=== PATIENT | male | born 1950 | race Caucasian/White ===

== ENCOUNTER 2016-12-17 17:23 | Inpatient (IN) | payer OTHER ==
[~2016-12-17] VITALS: Ht 182.9 cm; Wt 137.7 kg
--- NOTE | ~2016-12-17 | HC ---
[facility] [place] [address] CONSULTATION Name: ZACKNANA Room #: 417-I ADM IN .R.#: [id number] Admission: 12/17/16 Attend Phys: Hyun Rosa MD Discharge: Date of : 48 Report #: [id number] THIS REPORT FOR: //name// CC: FAM unknown Hyun Rosa DATE OF SERVICE: 12/19/2016 HISTORY OF PRESENT ILLNESS: The patient is a 66-year-old white male who was admitted with intermittent episodes of diarrhea, was noted to have a weight loss of 30 pounds, elevated creatinine. He had acute renal failure, hypokalemia secondary to diarrhea. He is having problems with worsening weakness to the point where he has become nonambulatory. He has been treated for his acute renal failure with hydration. He was noted to have hypokalemia. He had diarrhea. He is morbidly obese. We are seeing him in rehabilitation medicine consultation. PAST MEDICAL HISTORY: Includes morbid obesity. He has had bilateral lower extremity cellulitis in the past. He does have hyperglycemia with "prediabetes", history of hypertension. MEDICATIONS: Please see the full medication listing. SOCIAL HISTORY: Lives in a house alone. Premorbid gait was with a cane, always using a walker and had gotten to the point where he was unable to ambulate at all. He has two sisters that live locally. They had check in on him. He does have 5-6 steps into his apartment. He has had a house cleaning service when he can afford it. REVIEW OF SYSTEMS: No current complaints of chest pain, shortness of breath or abdominal discomfort. He does have pain involving his right thumb. He complains of overall generalized weakness. PHYSICAL EXAMINATION: GENERAL: He is a 66-year-old obese white male lying in bed in no obvious distress. VITAL SIGNS: Last recorded temperature is 98.4, pulse 108, respirations 17, blood pressure 151/91. EXTREMITIES: He does have significant erythema and swelling of the right thumb especially at the metacarpophalangeal base and to some extent across the thenar eminence. He has pain when attempting to shake hands. Functional range of motion of the left upper extremity with strength probably a grade 4- to 3+. Right upper extremity proximal strength was 4- to 3+. In his lower extremities, he has significant weakness at a grade 2+ to 3- proximally and more of a grade 3 to 3+ distally. Appears to have reasonably intact sensation to light touch. No focal calf swelling. He is quite weak with functional mobility, [place] [address] CONSULTATION Name: ANNA DIXON Room #: 417-I [facility] IN [facility].#: [id number] Admission: 12/17/16 Attend Phys: Hyun Rosa MD Discharge: Date of : 48 Report #: [id number] mod assist. He is dependent for sit to stand. ASSESSMENT: A 66-year-old white male with the following problem list: 1. Significant debilitation and weakness especially proximal lower extremities. He needs significant assistance with functional mobility and ADLs. 2. Right thumb metacarpophalangeal erythema and swelling. Rule out gout. Sed rate was 50. We will check a uric acid. 3. Recent acute renal failure. 4. History of recent weight loss. 5. Electrolyte abnormalities with hypokalemia. 6. History of intermittent episodes of diarrhea. 7. Morbid obesity. PLAN: See above. Orders placed for uric acid. He is very weak and would anticipate that he will need for prolonged therapies to try to gradually improve his strength and endurance. Insurance will need to be checked regarding rehab therapy options. By: [id number] Fredy Lewis MD /nt
--- NOTE | ~2016-12-17 | EKG ---
[place] [address] [facility] [place] [address] ELECTROCARDIOGRAM REPORT Name: ANNA DIXON Room #: 417-I ADM IN M.R.#: [id number] Admission: 12/17/16 Attend Phys: Hyun Rosa MD Discharge: Date of : 48 Report #: [id number] THIS REPORT FOR: //name// [facility] ED Test Date: 2016-12-17 Test Time: 17:59:48 Pat Name: ANNA DIXON Department: Room: [facility] Gender: M Progressive [employer] Maker: KAIDEN : 1950 Requested By: Ozzie Luong Order Number: [id number] MD: Rodney Reyes Measurements Intervals [place] Rate: 121 P: 0 IL: 87 QRS: 52 QRSD: 180 T: -65 QT: 352 QTc: 500 Interpretive Statements Atrial fibrillation with a rapid ventricular response Right bundle branch block ST depression, consider ischemia, diffuse lds Compared to ECG 04/15/2016 21:00:27 Atrial fibrillation is now present Electronically Signed On 12-18-2016 12:36:32 CDT by Rodney Reyes [email or web address] <ELECTRONICALLY SIGNED> By: Rodney Reyes MD, [facility] 12/18/16 1236 1759 1759 Rodney Reyes MD, [facility] /EPI
--- NOTE | ~2016-12-17 | H ---
[facility] [place] [address] HISTORY AND PHYSICAL Name: ANNA DIXON Room #: 417-I ADM IN M.R.#: [id number] Admission: 12/17/16 Attend Phys: Hyun Rosa MD Discharge: Date of : 48 Report #: [id number] THIS REPORT FOR: //name// CC: FAM unknown Hyun Rosa DATE OF SERVICE: 12/17/2016 ATTENDING PHYSICIAN: Hyun Rosa M.D. PRIMARY CARE PHYSICIAN: Dr. Prather. CHIEF COMPLAINT: Weakness and diarrhea. HISTORY OF PRESENT ILLNESS: The patient is a 66-year-old male who lives at home alone. Apparently for the last week, he has been having intermittent episodes of diarrhea. He said he has had at least 1-2 loose stools per day. He denies any watery stools. Denies any bloody or black stools. He has had nausea as well, but denies any vomiting. He really has not had much of an appetite all week along and reports losing about 30 pounds recently. He has also had increasing weakness today. Apparently, he was too weak to get up from his chair. His sister who was checking on him was very concerned and brought him into the ER. He was also incontinent of stool day, which was the first time this had occurred. He has continued to take his blood pressure medication, which include the diuretic throughout the week. He said he has been drinking fluids. He was noted in the ER to have elevated creatinine of 2.9. His last known creatinine was 1.0 in April 2016. He denies any prior history of kidney problems. He was admitted in last April with cellulitis of the lower extremities. He was discharged to a rehab facility and has now been back at home. PAST MEDICAL HISTORY: Hypertension, venous stasis, SVT, and "pre" diabetes. PAST SURGICAL HISTORY: None. ALLERGIES: SULFA, unknown reaction. HOME MEDICATIONS: Lisinopril/hydrochlorothiazide 20/12.5 one tab daily, potassium 20 mEq daily. SOCIAL HISTORY: The patient denies any tobacco, alcohol or drug use. He is retired, he lives alone. He ambulates with a cane. FAMILY HISTORY: His father in his 50s from an [place]. REVIEW OF SYSTEMS: The patient is denying any cough or congestion. He denies [facility] [address] [place] [address] HISTORY AND PHYSICAL Name: ZACKANNA Silver Room #: 417-I [facility] IN [facility].#: [id number] Admission: 12/17/16 Attend Phys: Hyun Rosa MD Discharge: Date of : 48 Report #: [id number] any recent fevers or chills. He denies any chest pain or palpitations. When he was previously here in April, he did have SVT and had an echocardiogram which showed normal EF with normal diastolic function and mild aortic stenosis. He denies any pain. All other 12-point review of systems was reviewed with the patient, otherwise negative unless stated in the HPI. PHYSICAL EXAMINATION: GENERAL: The patient is an alert male in no acute distress. VITAL SIGNS: Temperature is 36.1, heart rate 88, respirations 18, blood pressure is 152/86, oxygen 95% on room air. HEENT: PERRLA. Sclerae are nonicteric. Oral mucosa is pink and dry. NECK: Supple, no JVD noted. CARDIAC: Normal S1, S2 with a 2/6 systolic ejection murmur. RESPIRATORY: Breath sounds are clear bilaterally. No wheezing or rhonchi. Breathing is nonlabored. ABDOMEN: Round, obese, soft, completely nontender with positive bowel sounds. VASCULAR: Trace bilateral lower extremity edema. Pedal pulses are 2+. NEUROLOGIC: The patient is alert and oriented x 3. Speech is clear. He is moving all extremities equally. He does have some slight weakness in bilateral lower extremities. No focal weakness. Gait was not assessed. SKIN: Intact. No rashes or wounds. LABORATORY AND DIAGNOSTIC DATA: WBC is 14.7, hemoglobin 13.4, platelets 420. Sodium 137, potassium 2.6, BUN 64, creatinine 2.9, glucose is 191. Troponins negative. LFTs are within normal limits. BNP is 1177. EKG showing sinus tachycardia with a right bundle branch block. Chest x-ray is negative. UA is negative. ASSESSMENT AND PLAN: 1. Acute renal failure. Last known creatinine was normal in April of last year. This is likely due to poor p.o. intake and diarrhea as well as the use of the diuretics and angiotensin-converting enzyme inhibitor. We will hold his Zestoretic and gently hydrate and follow labs. If his creatinine does not improve, we will check a renal ultrasound and consult nephrology. 2. Hypokalemia, likely due to diuretic use. We will replace and repeat labs. 3. Diarrhea. We will check a stool culture. 4. Hyperglycemia. The patient reports a history of "pre" diabetes. We will check hemoglobin A1c and add sliding scale insulin and Accu-Cheks before meals and at bedtime. 5. Hypertension. Blood pressure is stable. Add Norvasc daily. 6. Deep venous thrombosis prophylaxis. Place sequential compression devices. [facility] [address] [place] [address] HISTORY AND PHYSICAL Name: ANNA DIXON Room #: 417-I ADM IN M.R.#: [id number] Admission: 12/17/16 Attend Phys: Hyun Rosa MD Discharge: Date of : 48 Report #: [id number] We will continue to follow the patient closely throughout the hospitalization and make changes based on clinical status. <ELECTRONICALLY SIGNED> By: CAMRYN Brown 12/18/16 0615 0438 0536 CAMRYN Brown /nt
[~2016-12-17 17:23] MED LIST: DIOVAN320 MG; HYDROCHLOROTH12.5 M1 PO; HYPERTENSIVE MED; KEFLEX500 MG PO; KLOR-CON 1010 MEQ PO; LISINOPRIL20 MG PO; MOBIC15 MG PO; NORCO 5-325 TA1 EACH PO; NORVASC5 MG PO
[2016-12-17] MEDS ORDERED: LISINOPRIL-HCT1 EAC1 PO (17:57)
[2016-12-17] MEDS ORDERED: K-DUR 20 MEQ T20 MEQ PO (17:57)
[2016-12-17 18:10] LABS: ABSOLUTE NEUTROPHILS 11.3 thou/uL (1.4-8.2); BASOPHILS 0.8 % (0.0-2.0); EOSINOPHILS 0.6 % (0.0-3.0); HEMOGLOBIN 13.4 gm/dL (14.0-18.0); LYMPHOCYTES 14.3 % (24.0-44.0); MCH 28.3 pg (26.0-34.0); MCHC 33.5 g/dL (28.0-37.0); MCV 84.6 fL (80.0-100.0); MONOCYTES 7.8 % (1.0-8.0); PLATELET COUNT 420 thou/uL (150-400); POLYS 76.5 % (36.0-66.0); RBC 4.73 mil/uL (4.50-6.00); RDW 14.2 % (10.5-14.5); WBC 14.7 thou/uL (4.0-11.0)
[2016-12-17 18:12] LABS: MANUAL DIFF NO
[2016-12-17 18:33] LABS: ALBUMIN 3.4 g/dL (3.4-5.0); ALKALINE PHOSPHATASE 117 U/L (46-116); BUN 64 mg/dL (7-18); CALCIUM 9.1 mg/dL (8.5-10.1); CREATININE 2.9 mg/dL (0.6-1.3); GLUCOSE 191 mg/dL (70-99); SGOT 19 U/L (15-37); SGPT 17 U/L (30-65); TOTAL BILIRUBIN 0.5 mg/dL (<0.1-1.0); TOTAL PROTEIN 8.2 g/dL (6.4-8.2); TROPONIN-I < 0.04 ng/mL (<0.04-0.07)
[2016-12-17 18:42] LABS: ANION GAP 14 mmol/L (7-16); CHLORIDE 99 mmol/L (98-107); CO2 24 mmol/L (21-32); POTASSIUM 2.6 mmol/L (3.5-5.1); SODIUM 137 mmol/L (136-145)
[2016-12-17 19:15] LABS: URINE BILIRUBIN NEGATIVE (Negative); URINE BLOOD NEGATIVE (Negative); URINE COLOR YELLOW; URINE GLUCOSE-RANDOM* NEGATIVE (Negative); URINE KETONES NEGATIVE (Negative); URINE LEUKOCYTES-REFLEX NEGATIVE (Negative); URINE PROTEIN (DIPSTICK) NEGATIVE (Negative); URINE UROBILINOGEN 0.2 E.U./dl (0.2-1.0)
[2016-12-18 06:28] LABS: CALCIUM 8.1 mg/dL (8.5-10.1); MAGNESIUM 1.7 mg/dL (1.8-2.4)
[2016-12-18 06:34] LABS: POTASSIUM 2.6 mmol/L (3.5-5.1)
[2016-12-19 05:22] LABS: HEMATOCRIT 35.9 % (42.0-52.0); MCH 28.7 pg (26.0-34.0); MCHC 33.4 g/dL (28.0-37.0); MCV 85.9 fL (80.0-100.0); RBC 4.18 mil/uL (4.50-6.00); RDW 14.2 % (10.5-14.5); WBC 10.3 thou/uL (4.0-11.0)
[2016-12-19 05:50] LABS: CALCIUM 8.6 mg/dL (8.5-10.1); CREATININE 1.4 mg/dL (0.6-1.3)
[2016-12-19 05:59] LABS: POTASSIUM 2.8 mmol/L (3.5-5.1)
[2016-12-19 20:38] LABS: POTASSIUM 3.3 mmol/L (3.5-5.1); URIC ACID* 12.4 mg/dL (2.6-7.2)
[2016-12-20] MEDS ORDERED: ULTRAM 50MG TAB50 MG PO (11:26)
== END 2016-12-20 15:59 | DRG 682 ==
LOC: ER 17:23 → EROBS 19:36 → 4E 19:36
PROVIDERS: Family Medicine; Nurse Practitioner Acute Care; Physician Assistant
DX: N17.0 Acute kidney failure with tubular necrosis (principal); R65.11 Systemic inflammatory response syndrome (SIRS) of non-infectious origin with acute organ dysfunction; Z68.41 Body mass index [BMI] 40.0-44.9, adult; E66.01 Morbid (severe) obesity due to excess calories; I10 Essential (primary) hypertension; I48.91 Unspecified atrial fibrillation; R73.9 Hyperglycemia, unspecified; R73.03 Prediabetes; E86.0 Dehydration; E87.6 Hypokalemia; Z60.2 Problems related to living alone; Z88.2 Allergy status to sulfonamides; Z79.899 Other long term (current) drug therapy; Z82.49 Family history of ischemic heart disease and other diseases of the circulatory system
CPT/HCPCS: 10183